=== PATIENT | female | born 1990 | race Hispanic/Latino ===

== ENCOUNTER 2023-01-17 14:40 | Outpatient (CLI) | payer OTHER | END 2023-01-17 14:41 | disposition home or self-care (01) | LOC: EEG 14:40 | PROVIDERS: ATTEND Psychiatry & Neurology Neurology | DX: G40.209 Localization-related (focal) (partial) symptomatic epilepsy and epileptic syndromes with complex partial seizures, not intractable, without status epilepticus (principal) | CPT/HCPCS: 95816; 95957 ==